=== PATIENT | male | born 1965 | race Two or more races ===

== ENCOUNTER 2018-11-28 07:37 | Day surgery (SDC) | payer OTHER ==
[~2018-11-28 07:37] MED LIST: DESFLURANE 15 MIN
[2018-11-28] MEDS: COCAINE 4% 4 ML TOP (09:15)
[2018-11-28] MEDS: LIDOCAINE 1%/EPI (1:100,000) (MDV) 20 ML INJ (09:15)
[2018-11-28] MEDS ORDERED: LIDOCAINE 1%/EPI (1:100,000) (MDV) 20 ML (09:19)
[2018-11-28] MEDS ORDERED: COCAINE 4% 4 ML TOP (09:19)
[2018-11-28] MEDS ORDERED: NEOMYC/POLYMYX/BACIT 3.5GM OPH OINT (09:21)
[2018-11-28] MEDS ORDERED: NEOMYC/POLYMYX/BACIT 30 GM OINT (09:22)
[2018-11-28] MEDS ORDERED: ONDANSETRON 4 MG INJ IV (09:30)
[2018-11-28] MEDS ORDERED: ALBUTEROL 0.083% (NEB) 2.5 MG/3 ML AMP HHN (09:30)
[2018-11-28] MEDS ORDERED: MEPERIDINE 25 MG INJ IV (09:30)
[2018-11-28] MEDS ORDERED: METOCLOPRAMIDE 10 MG INJ IV (09:30)
[2018-11-28] MEDS ORDERED: DIPHENHYDRAMINE 50 MG INJ IV (09:30)
[2018-11-28] MEDS ORDERED: FENTAnyl 50 MCG/ML VIAL IV ×2 (09:30)
[2018-11-28] MEDS ORDERED: HYDROmorphONE 1 MG/5 ML IV SYRINGE IV ×3 (09:30)
[2018-11-28] MEDS ORDERED: FENTAnyl 50 MCG/ML VIAL (09:34)
[2018-11-28] MEDS ORDERED: PROPOFOL 40 ML (09:40)
[2018-11-28] MEDS ORDERED: ROCURONIUM 50 MG INJ (09:40)
[2018-11-28] MEDS ORDERED: LIDOCAINE 100 MG SYRINGE (09:41)
[2018-11-28] MEDS ORDERED: CEFAZOLIN 1 GM INJ (09:41)
[2018-11-28] MEDS ORDERED: SUCCINYLCHOLINE CHLORIDE 100 MG/5 ML SYG IV (09:41)
[2018-11-28] MEDS ORDERED: DEXAMETHASONE 4 MG/ML 5 ML INJ (09:56)
[2018-11-28] MEDS: BACITRACIN/POLYMYXIN 0.9 GM OINT TOP (10:34)
[2018-11-28] MEDS ORDERED: SUGAMMADEX SODIUM 200 MG/2 ML VIAL IV (10:43)
== END 2018-11-28 12:35 | disposition home or self-care (01) ==
LOC: SDS 07:37
DX: J34.2 Deviated nasal septum (principal); J34.3 Hypertrophy of nasal turbinates; E66.01 Morbid (severe) obesity due to excess calories; Z68.31 Body mass index [BMI] 31.0-31.9, adult
CPT/HCPCS: 30140; 88300